=== PATIENT | male | born 1985 | race Caucasian/White ===

== ENCOUNTER 2017-06-19 09:10 | Inpatient (IN) | payer MEDICAID ==
[~2017-06-19] VITALS: Ht 180.3 cm; Wt 96.3 kg
[~2017-06-19 09:10] MED LIST: BENZ1TAB10 PO; BUSP10TA23 PO; DIPH50 PO; DIVA500T35 PO; HALO5 PO; LITH300C3 PO; TRAZ-147 PO
[2017-06-19 09:56] LABS: BASOPHILS # (AUTO) 0.03 K/uL (0.00-0.20); BASOPHILS % (AUTO) 0.2 % (0.0-2.0); EOSINOPHILS # (AUTO) 0.08 K/uL (0.00-0.70); EOSINOPHILS % (AUTO) 0.62 % (1.0-6.0); HEMATOCRIT 46.3 % (41-53); HEMOGLOBIN 15.4 g/dL (13.5-17.5); LYMPHOCYTES # (AUTO) 1.5 K/uL (1.0-4.8); MEAN CORPUSCULAR HEMOGLOBIN 28.9 pg (26.0-34.0); MEAN CORPUSCULAR HGB CONC 33.2 G/dL (31.0-37.0); MEAN CORPUSCULAR VOLUME 87 fL (80-100); MONOCYTES # (AUTO) 0.9 K/uL (0.1-1.0); NEUTROPHILS # (AUTO) 10.3 K/uL (1.8-7.7); NEUTROPHILS % (AUTO) 80.2 % (40.0-70.0); PLATELET COUNT (AUTO) 265 K/uL (150-450); RED BLOOD CELL COUNT(AUTO) 5.31 MIL/uL (4.50-5.90); RED CELL DISTRIBUTION WIDTH 12.9 % (11.5-14.5); WHITE BLOOD COUNT (AUTO) 12.8 K/uL (4.5-11.0)
[2017-06-19 10:03] LABS: ANION GAP 11 mmol/L (8-16); CALCIUM, TOTAL 9.7 mg/dL (8.8-10.5); CARBON DIOXIDE 29 mmol/L (22-29); CHLORIDE 103 mmol/L (98-107); GLOMERULAR FILTR. RATE CALC > 60 mL/min (>60); POTASSIUM 4.1 mmol/L (3.5-5.1); SODIUM SERUM 143 mmol/L (136-145); UREA NITROGEN, BLOOD 12 mg/dL (7-18)
[2017-06-19 10:05] LABS: LITHIUM < 0.20 mmol/L (0.60-1.20)
[2017-06-19 10:09] LABS: ALANINE AMINOTRANSFERASE 33 U/L (12-78); ALBUMIN 4.3 g/dL (3.4-5.0); ASPARTATE AMINOTRANSFERASE 22 U/L (15-37); BILIRUBIN,TOTAL 0.5 mg/dL (0.1-1.0); TOTAL PROTEIN, SERUM 7.7 g/dL (6.4-8.2)
[2017-06-19 10:15] LABS: VALPROIC ACID < 3 mcg/mL (50-100)
[2017-06-19] MEDS ORDERED: DiphenhydrAMINE HCL 50 MG CAPSULE PO ONE (10:15)
[2017-06-19] MEDS ORDERED: LORazepam 2 MG TABLET PO ONE (10:15)
[2017-06-19] MEDS ORDERED: HALOPERIDOL 5 MG TABLET PO ONE (10:15)
[2017-06-19] MEDS ORDERED: ZOLPIDEM TARTRATE 10 MG TABLET PO PRN (10:45)
[2017-06-19] MEDS ORDERED: HALO10 PO (10:49)
[2017-06-20 00:07] VITALS: BP 121/67
[2017-06-20 07:54] LABS: APPEARANCE,URINE CLEAR (CLEAR); GLUCOSE, URINE (UA) NEGATIVE (NEGATIVE); KETONES,URINE TRACE mg/dL (NEGATIVE); LEUKOCYTE ESTERASE ,URINE NEGATIVE (NEGATIVE); OCCULT BLOOD,URINE NEGATIVE (NEGATIVE); PROTEIN,URINE NEGATIVE (NEGATIVE)
[2017-06-20 07:58] LABS: CHOL/HDL RATIO 3.6 (4.2-7.3)
[2017-06-20 08:00] LABS: ADD UA MICROSCOPIC NO
[2017-06-20 08:40] VITALS: BP 125/76
[2017-06-20] MEDS ORDERED: LOPERAMIDE HCL 2 MG CAPSULE PO PRN (09:15)
[2017-06-20] MEDS ORDERED: ACETAMINOPHEN 325 MG TABLET PO PRN (09:15)
[2017-06-20] MEDS ORDERED: MAGNESIUM HYDROXIDE SUSPENSION 30 ML UDCUP PO PRN (09:15)
[2017-06-20] MEDS ORDERED: ONDANSETRON HCL 4 MG TABLET PO PRN (09:15)
[2017-06-20] MEDS ORDERED: ALBUTEROL SULFATE HFA 90 MCG/PUFF 8 GM INHALER IH PRN (09:15)
[2017-06-20] MEDS ORDERED: PETROLATUM,WHITE 71 GM JELLY TP PRN (09:15)
[2017-06-20] MEDS ORDERED: BACITRACIN 28.4 GM OINTMENT TP PRN (09:15)
[2017-06-20] MEDS ORDERED: CloNIDine HCL 0.1 MG TABLET PO PRN (09:15)
[2017-06-20] MEDS ORDERED: MAG HYDROX/AL HYDROX/SIMETH ES 30 ML SUSPENSION UDCUP PO PRN (09:15)
[2017-06-20] MEDS ORDERED: IBUPROFEN 600 MG TABLET PO PRN (09:15)
[2017-06-20] MEDS ORDERED: BENZOCAINE/MENTHOL LOZENGE [8 LOZENGES/PACKET] MM PRN (09:30)
[2017-06-20] MEDS: HALOPERIDOL 5 MG TABLET PO PRN (13:12)
[2017-06-20] MEDS: LORazepam 2 MG TABLET PO PRN (13:13)
[2017-06-20] MEDS: DIVALPROEX SODIUM 250 MG ER TABLET PO SCH (20:44)
[2017-06-20] MEDS: TraZODone HCL 100 MG TABLET PO SCH (20:44)
[2017-06-21 08:05] VITALS: BP 129/75
[2017-06-21] MEDS: HALOPERIDOL 5 MG TABLET PO PRN (09:08)
[2017-06-21] MEDS: DIVALPROEX SODIUM 250 MG ER TABLET PO SCH ×2 (09:08→16:30)
[2017-06-21] MEDS: LORazepam 2 MG TABLET PO PRN ×2 (09:08→16:30)
[2017-06-21 20:05] VITALS: BP 128/74
[2017-06-21] MEDS: TraZODone HCL 100 MG TABLET PO SCH (21:24)
[2017-06-22] MEDS: LORazepam 2 MG TABLET PO PRN (05:57)
[2017-06-22 06:07] VITALS: BP 126/73
[2017-06-22 06:52] LABS: BASOPHILS % (AUTO) 0.3 % (0.0-2.0); EOSINOPHILS % (AUTO) 3.1 % (1.0-6.0); HEMATOCRIT 44.2 % (41-53); HEMOGLOBIN 15.2 g/dL (13.5-17.5); LYMPHOCYTES # (AUTO) 2.2 K/uL (1.0-4.8); LYMPHOCYTES % (AUTO) 25.5 % (22.0-44.0); MEAN CORPUSCULAR HEMOGLOBIN 29.5 pg (26.0-34.0); MEAN CORPUSCULAR HGB CONC 34.5 G/dL (31.0-37.0); MEAN CORPUSCULAR VOLUME 86 fL (80-100); MONOCYTES # (AUTO) 1.1 K/uL (0.1-1.0); NEUTROPHILS # (AUTO) 4.9 K/uL (1.8-7.7); NEUTROPHILS % (AUTO) 58.1 % (40.0-70.0); PLATELET COUNT (AUTO) 281 K/uL (150-450); RED BLOOD CELL COUNT(AUTO) 5.16 MIL/uL (4.50-5.90); RED CELL DISTRIBUTION WIDTH 13.2 % (11.5-14.5); WHITE BLOOD COUNT (AUTO) 8.5 K/uL (4.5-11.0)
[2017-06-22 07:13] LABS: ALANINE AMINOTRANSFERASE 40 U/L (12-78); ALBUMIN 3.7 g/dL (3.4-5.0); ANION GAP 7 mmol/L (8-16); ASPARTATE AMINOTRANSFERASE 17 U/L (15-37); BILIRUBIN,TOTAL 0.2 mg/dL (0.1-1.0); CALCIUM, TOTAL 9.5 mg/dL (8.8-10.5); CARBON DIOXIDE 29 mmol/L (22-29); CHLORIDE 103 mmol/L (98-107); CREATININE 0.85 mg/dL (0.60-1.30); GLOMERULAR FILTR. RATE CALC > 60 mL/min (>60); POTASSIUM 4.2 mmol/L (3.5-5.1); SODIUM SERUM 139 mmol/L (136-145); TOTAL PROTEIN, SERUM 6.7 g/dL (6.4-8.2); UREA NITROGEN, BLOOD 7 mg/dL (7-18); VALPROIC ACID 47 mcg/mL (50-100)
[2017-06-22 08:00] VITALS: BP 131/72
[2017-06-22] MEDS: DIVALPROEX SODIUM 250 MG ER TABLET PO SCH (08:03)
[2017-06-22] MEDS: HALOPERIDOL 5 MG TABLET PO PRN (08:04)
[2017-06-22 08:30] VITALS: BP 131/72
[2017-06-22] MEDS ORDERED: DIVA250T45 PO (08:39)
== END 2017-06-22 08:58 | disposition home or self-care (01) | DRG 750 ==
LOC: EMS 09:15 → 3EC 23:00 → EMS 23:41
PROVIDERS: ADMIT Psychiatry & Neurology Child & Adolescent Psychiatry; ATTEND Psychiatry & Neurology Child & Adolescent Psychiatry
DX: F25.0 Schizoaffective disorder, bipolar type (principal); F15.20 Other stimulant dependence, uncomplicated; D72.829 Elevated white blood cell count, unspecified; F32.9 Major depressive disorder, single episode, unspecified; F17.210 Nicotine dependence, cigarettes, uncomplicated; F41.9 Anxiety disorder, unspecified; M54.5 Low back pain; G89.29 Other chronic pain; G47.00 Insomnia, unspecified; K58.9 Irritable bowel syndrome, unspecified; F12.90 Cannabis use, unspecified, uncomplicated; Z88.8 Allergy status to other drugs, medicaments and biological substances; Z63.9 Problem related to primary support group, unspecified; Z71.6 Tobacco abuse counseling; Z71.51 Drug abuse counseling and surveillance of drug abuser; Z79.899 Other long term (current) drug therapy
CPT/HCPCS: 80307; 99285; G0480

== ENCOUNTER 2018-03-13 05:27 | Emergency (ER) | payer MEDICAID ==
[~2018-03-13] VITALS: Ht 180.3 cm; Wt 100.0 kg
[~2018-03-13 05:27] MED LIST changes: -BENZ1TAB10 PO; -BUSP10TA23 PO; -DIPH50 PO; +DIVA250T45 PO; -DIVA500T35 PO; -HALO5 PO; -LITH300C3 PO
[2018-03-13] MEDS ORDERED: OLAN5TAB2 PO (05:58)
[2018-03-13 06:40] VITALS: BP 151/91
[2018-03-13] MEDS ORDERED: IBUPROFEN 600 MG TABLET PO ONE (06:45)
== END 2018-03-13 06:45 | disposition home or self-care (01) ==
LOC: EMS 05:27
DX: H66.91 Otitis media, unspecified, right ear (principal); F12.90 Cannabis use, unspecified, uncomplicated; F17.220 Nicotine dependence, chewing tobacco, uncomplicated
CPT/HCPCS: 99283

== ENCOUNTER 2018-09-06 21:33 | Emergency (ER) | payer MEDICAID ==
[~2018-09-06] VITALS: Ht 177.8 cm; Wt 95.0 kg
[~2018-09-06 21:33] MED LIST changes: +OLAN5TAB2 PO; -TRAZ-147 PO
[2018-09-06 21:39] VITALS: BP 155/89
[2018-09-06] MEDS ORDERED: AZIT250T9 PO (21:40)
== END 2018-09-06 22:00 | disposition left against medical advice (07) ==
LOC: EMS 21:34
DX: F41.9 Anxiety disorder, unspecified (principal); Z53.21 Procedure and treatment not carried out due to patient leaving prior to being seen by health care provider

== ENCOUNTER 2019-05-05 19:25 | Emergency (ER) | payer MEDICAID ==
[~2019-05-05] VITALS: Ht 177.8 cm; Wt 90.9 kg
[~2019-05-05 19:25] MED LIST changes: +TRAZ-220 PO
[2019-05-05 19:56] LABS: BASOPHILS % (AUTO) 0.5 % (0.0-2.0); EOSINOPHILS % (AUTO) 5.5 % (1.0-6.0); HEMATOCRIT 41.3 % (41-53); HEMOGLOBIN 13.5 g/dL (13.5-17.5); LYMPHOCYTES # (AUTO) 1.8 K/uL (1.0-4.8); LYMPHOCYTES % (AUTO) 19.1 % (22.0-44.0); MEAN CORPUSCULAR HEMOGLOBIN 28.9 pg (26.0-34.0); MEAN CORPUSCULAR HGB CONC 32.8 G/dL (31.0-37.0); MEAN CORPUSCULAR VOLUME 88 fL (80-100); MONOCYTES # (AUTO) 0.9 K/uL (0.1-1.0); MONOCYTES % (AUTO) 9.8 % (2.0-9.0); NEUTROPHILS # (AUTO) 6.1 K/uL (1.8-7.7); NEUTROPHILS % (AUTO) 65.1 % (40.0-70.0); PLATELET COUNT (AUTO) 284 K/uL (150-450); RED BLOOD CELL COUNT(AUTO) 4.68 MIL/uL (4.50-5.90); RED CELL DISTRIBUTION WIDTH 14.3 % (11.5-14.5)
[2019-05-05 20:09] LABS: ANION GAP 11 mmol/L (8-16); CALCIUM, TOTAL 8.8 mg/dL (8.8-10.5); CARBON DIOXIDE 28 mmol/L (22-29); CHLORIDE 103 mmol/L (98-107); CREATININE 1.14 mg/dL (0.60-1.30); GLOMERULAR FILTR. RATE CALC > 60 mL/min (>60); GLUCOSE,RANDOM 125 mg/dL (70-110); POTASSIUM 3.5 mmol/L (3.5-5.1); SODIUM SERUM 142 mmol/L (136-145); UREA NITROGEN, BLOOD 19 mg/dL (7-18)
[2019-05-05 20:18] LABS: ALANINE AMINOTRANSFERASE 98 U/L (12-78); ALBUMIN 3.4 g/dL (3.4-5.0); ALKALINE PHOSPHATASE 73 U/L (46-116); ASPARTATE AMINOTRANSFERASE 79 U/L (15-37); BILIRUBIN,TOTAL 0.3 mg/dL (0.1-1.0); TOTAL PROTEIN, SERUM 6.8 g/dL (6.4-8.2); VALPROIC ACID 9 mcg/mL (50-100)
[2019-05-05 23:16] LABS: AMPHET/METH SCREEN,URINE POSITIVE (NEGATIVE); BARBITURATE SCREEN, URINE NEGATIVE (NEGATIVE); BENZODIAZEPINES SCREEN,URINE NEGATIVE (NEGATIVE); CANNABINOID SCREEN,URINE NEGATIVE (NEGATIVE); COCAINE SCREEN,URINE NEGATIVE (NEGATIVE); METHADONE SCREEN, URINE NEGATIVE (NEGATIVE); OPIATE SCREEN,URINE NEGATIVE (NEGATIVE); PHENCYCLIDINE SCREEN,URINE NEGATIVE (NEGATIVE)
[2019-05-06 01:03] VITALS: BP 127/69
== END 2019-05-06 01:05 | disposition home or self-care (01) ==
LOC: EMS 19:27
DX: F20.9 Schizophrenia, unspecified (principal); F31.9 Bipolar disorder, unspecified; F41.9 Anxiety disorder, unspecified; F12.90 Cannabis use, unspecified, uncomplicated; F17.220 Nicotine dependence, chewing tobacco, uncomplicated; Z79.899 Other long term (current) drug therapy; Z88.8 Allergy status to other drugs, medicaments and biological substances
CPT/HCPCS: 36415; 80053; 80164; 80307; 82962; 85025; 99284; G0480

== ENCOUNTER 2019-09-14 12:38 | Inpatient (IN) | payer MEDICAID, OTHER ==
[~2019-09-14] VITALS: Ht 177.8 cm; Wt 92.0 kg
[2019-09-14 12:56] LABS: AMPHET/METH SCREEN,URINE POSITIVE (NEGATIVE); BARBITURATE SCREEN, URINE NEGATIVE (NEGATIVE); BENZODIAZEPINES SCREEN,URINE NEGATIVE (NEGATIVE); CANNABINOID SCREEN,URINE NEGATIVE (NEGATIVE); COCAINE SCREEN,URINE NEGATIVE (NEGATIVE); METHADONE SCREEN, URINE NEGATIVE (NEGATIVE); OPIATE SCREEN,URINE NEGATIVE (NEGATIVE)
[2019-09-14 12:57] LABS: PHENCYCLIDINE SCREEN,URINE NEGATIVE (NEGATIVE)
[2019-09-14 12:58] LABS: BASOPHILS % (AUTO) 0.6 % (0.0-2.0); EOSINOPHILS % (AUTO) 3.2 % (1.0-6.0); HEMATOCRIT 48.3 % (41-53); HEMOGLOBIN 16.2 g/dL (13.5-17.5); LYMPHOCYTES # (AUTO) 1.3 K/uL (1.0-4.8); LYMPHOCYTES % (AUTO) 14.4 % (22.0-44.0); MEAN CORPUSCULAR HGB CONC 33.5 G/dL (31.0-37.0); MEAN CORPUSCULAR VOLUME 87 fL (80-100); MONOCYTES # (AUTO) 0.7 K/uL (0.1-1.0); MONOCYTES % (AUTO) 7.6 % (2.0-9.0); NEUTROPHILS # (AUTO) 6.9 K/uL (1.8-7.7); NEUTROPHILS % (AUTO) 74.2 % (40.0-70.0); PLATELET COUNT (AUTO) 355 K/uL (150-450); RED BLOOD CELL COUNT(AUTO) 5.58 MIL/uL (4.50-5.90); RED CELL DISTRIBUTION WIDTH 14.1 % (11.5-14.5)
[2019-09-14] MEDS ORDERED: ONDANSETRON HCL 4 MG/2 ML VIAL IVP PRN (13:00)
[2019-09-14] MEDS ORDERED: MAGNESIUM HYDROXIDE SUSPENSION 30 ML UDCUP PO PRN (13:00)
[2019-09-14 13:31] LABS: ANION GAP 7 mmol/L (8-16); CALCIUM, TOTAL 9.3 mg/dL (8.8-10.5); CARBON DIOXIDE 29 mmol/L (22-29); CHLORIDE 99 mmol/L (98-107); CREATININE 0.95 mg/dL (0.60-1.30); GLOMERULAR FILTR. RATE CALC > 60 mL/min (>60); GLUCOSE,RANDOM 84 mg/dL (70-110); POTASSIUM 4.6 mmol/L (3.5-5.1); SODIUM SERUM 135 mmol/L (136-145); UREA NITROGEN, BLOOD 18 mg/dL (7-18)
[2019-09-14 13:39] LABS: ALANINE AMINOTRANSFERASE 40 U/L (12-78); ALBUMIN 3.8 g/dL (3.4-5.0); ALKALINE PHOSPHATASE 74 U/L (46-116); ASPARTATE AMINOTRANSFERASE 29 U/L (15-37); BILIRUBIN,TOTAL 0.5 mg/dL (0.1-1.0); TOTAL PROTEIN, SERUM 7.6 g/dL (6.4-8.2)
[2019-09-14] MEDS: ACETAMINOPHEN 325 MG TABLET PO PRN (14:25)
[2019-09-14 14:36] VITALS: BP 125/73
[2019-09-14] MEDS ORDERED: SODIUM CHLORIDE 0.9% 1,000 ML IV ONE (14:45)
[2019-09-14] MEDS ORDERED: INFLUENZA VIRUS VACCINE QVS 2019-20 (3YR+)/PF 60 MCG/0.5 ML SYRINGE IM ONE (18:00)
[2019-09-14 20:18] VITALS: BP 133/76
[2019-09-14 23:12] VITALS: BP 116/62
[2019-09-15 05:25] VITALS: BP 120/63
[2019-09-15 07:50] VITALS: BP 130/86
[2019-09-15] MEDS: FAMOTIDINE 20 MG TABLET PO SCH (09:23)
[2019-09-15] MEDS: MULTIVITAMINS WITH MINERALS, THERAPEUTIC TABLET PO SCH (09:23)
[2019-09-15 11:00] VITALS: BP 116/91
[2019-09-15] MEDS: HydrOXYzine PAMOATE 50 MG CAPSULE PO PRN ×2 (12:59→21:32)
[2019-09-15 15:07] VITALS: BP 130/71
[2019-09-15 20:00] VITALS: BP 119/83
[2019-09-15] MEDS: ACETAMINOPHEN 325 MG TABLET PO PRN (21:32)
[2019-09-16 05:27] VITALS: BP 119/75
[2019-09-16 07:16] VITALS: BP 126/77
[2019-09-16] MEDS ORDERED: SERTRALINE HCL 50 MG TABLET PO SCH (09:00)
[2019-09-16] MEDS ORDERED: OLANZapine 5 MG TABLET PO SCH (09:00)
[2019-09-16] MEDS: MULTIVITAMINS WITH MINERALS, THERAPEUTIC TABLET PO SCH (09:09)
[2019-09-16] MEDS: FAMOTIDINE 20 MG TABLET PO SCH (09:09)
[2019-09-16 11:30] VITALS: BP 125/86
== END 2019-09-16 13:55 | DRG 897 ==
LOC: EMS 12:39 → 6S 13:15
PROVIDERS: ADMIT Internal Medicine; ATTEND Internal Medicine
DX: F11.23 Opioid dependence with withdrawal (principal); R45.851 Suicidal ideations; F20.0 Paranoid schizophrenia; F41.9 Anxiety disorder, unspecified; F31.9 Bipolar disorder, unspecified; F15.10 Other stimulant abuse, uncomplicated; G89.29 Other chronic pain; M54.9 Dorsalgia, unspecified; Z23 Encounter for immunization
CPT/HCPCS: 90686; 93005; G0480; J7030

== ENCOUNTER 2019-09-21 21:59 | Inpatient (IN) | payer OTHER ==
[~2019-09-21] VITALS: Ht 175.3 cm; Wt 98.4 kg
[2019-09-21 22:25] LABS: BASOPHILS % (AUTO) 0.5 % (0.0-2.0); EOSINOPHILS % (AUTO) 3.4 % (1.0-6.0); HEMATOCRIT 41.6 % (41-53); HEMOGLOBIN 13.8 g/dL (13.5-17.5); LYMPHOCYTES # (AUTO) 2.3 K/uL (1.0-4.8); LYMPHOCYTES % (AUTO) 31.1 % (22.0-44.0); MEAN CORPUSCULAR HEMOGLOBIN 28.9 pg (26.0-34.0); MEAN CORPUSCULAR HGB CONC 33.2 G/dL (31.0-37.0); MEAN CORPUSCULAR VOLUME 87 fL (80-100); MONOCYTES # (AUTO) 0.7 K/uL (0.1-1.0); MONOCYTES % (AUTO) 9.6 % (2.0-9.0); NEUTROPHILS # (AUTO) 4.1 K/uL (1.8-7.7); NEUTROPHILS % (AUTO) 55.4 % (40.0-70.0); PLATELET COUNT (AUTO) 275 K/uL (150-450); RED BLOOD CELL COUNT(AUTO) 4.79 MIL/uL (4.50-5.90); RED CELL DISTRIBUTION WIDTH 13.8 % (11.5-14.5)
[2019-09-21 22:41] LABS: ANION GAP 6 mmol/L (8-16); CALCIUM, TOTAL 8.4 mg/dL (8.8-10.5); CARBON DIOXIDE 30 mmol/L (22-29); CHLORIDE 104 mmol/L (98-107); CREATININE 0.99 mg/dL (0.60-1.30); GLOMERULAR FILTR. RATE CALC > 60 mL/min (>60); GLUCOSE,RANDOM 92 mg/dL (70-110); POTASSIUM 3.8 mmol/L (3.5-5.1); SODIUM SERUM 140 mmol/L (136-145); UREA NITROGEN, BLOOD 10 mg/dL (7-18)
[2019-09-21 22:46] LABS: ALANINE AMINOTRANSFERASE 46 U/L (12-78); ALBUMIN 3.4 g/dL (3.4-5.0); ALKALINE PHOSPHATASE 67 U/L (46-116); ASPARTATE AMINOTRANSFERASE 23 U/L (15-37); BILIRUBIN,TOTAL 0.2 mg/dL (0.1-1.0); TOTAL PROTEIN, SERUM 6.5 g/dL (6.4-8.2)
[2019-09-21] MEDS ORDERED: ONDANSETRON HCL 4 MG/2 ML VIAL IVP PRN (23:30)
[2019-09-22 06:48] LABS: APPEARANCE,URINE CLEAR (CLEAR); BILIRUBIN,URINE NEGATIVE (NEGATIVE); GLUCOSE, URINE (UA) NEGATIVE (NEGATIVE); KETONES,URINE NEGATIVE (NEGATIVE); LEUKOCYTE ESTERASE ,URINE NEGATIVE (NEGATIVE); NITRATE,URINE NEGATIVE (NEGATIVE); OCCULT BLOOD,URINE NEGATIVE (NEGATIVE); PROTEIN,URINE NEGATIVE (NEGATIVE); UROBILINOGEN,URINE 0.2 mg/dL (<=1.0)
[2019-09-22 06:54] LABS: AMPHET/METH SCREEN,URINE NEGATIVE (NEGATIVE); BARBITURATE SCREEN, URINE NEGATIVE (NEGATIVE); BENZODIAZEPINES SCREEN,URINE NEGATIVE (NEGATIVE); CANNABINOID SCREEN,URINE NEGATIVE (NEGATIVE); COCAINE SCREEN,URINE NEGATIVE (NEGATIVE); METHADONE SCREEN, URINE NEGATIVE (NEGATIVE); OPIATE SCREEN,URINE NEGATIVE (NEGATIVE)
[2019-09-22 07:02] LABS: PHENCYCLIDINE SCREEN,URINE NEGATIVE (NEGATIVE)
[2019-09-22 08:23] VITALS: BP 117/80
[2019-09-22] MEDS: DOCUSATE SODIUM 100 MG CAPSULE PO SCH ×2 (09:00→21:00)
[2019-09-22 11:48] VITALS: BP 118/71
[2019-09-22 15:41] VITALS: BP 105/65
[2019-09-22 19:19] VITALS: BP 129/75
[2019-09-22] MEDS ORDERED: DiphenhydrAMINE HCL 25 MG CAPSULE PO ONE (22:00)
[2019-09-23 00:25] VITALS: BP 123/70
[2019-09-23 07:30] VITALS: BP 120/75
[2019-09-23] MEDS: DOCUSATE SODIUM 100 MG CAPSULE PO SCH ×2 (09:00→20:44)
[2019-09-23 11:13] VITALS: BP 128/67
[2019-09-23] MEDS: DIVALPROEX SODIUM 500 MG DR TABLET PO SCH ×2 (13:04→20:39)
[2019-09-23] MEDS: QUEtiapine FUMARATE 25 MG TABLET PO SCH (13:05)
[2019-09-23 15:12] VITALS: BP 124/72
[2019-09-23 20:14] VITALS: BP 106/60
[2019-09-23] MEDS: QUEtiapine FUMARATE 100 MG TABLET PO SCH (20:39)
[2019-09-23 23:27] VITALS: BP 116/66
[2019-09-24 05:42] VITALS: BP 118/12
[2019-09-24 07:20] VITALS: BP 116/69
[2019-09-24] MEDS: DIVALPROEX SODIUM 500 MG DR TABLET PO SCH ×2 (07:58→21:38)
[2019-09-24] MEDS: DOCUSATE SODIUM 100 MG CAPSULE PO SCH ×3 (07:58→21:38)
[2019-09-24] MEDS: QUEtiapine FUMARATE 25 MG TABLET PO SCH (08:00)
[2019-09-24 11:08] VITALS: BP 130/63
[2019-09-24] MEDS: VENLAFAXINE HCL 75 MG ER CAPSULE PO SCH (14:17)
[2019-09-24 15:05] VITALS: BP 124/74
[2019-09-24 19:22] VITALS: BP 126/74
[2019-09-24] MEDS: QUEtiapine FUMARATE 100 MG TABLET PO SCH (21:39)
[2019-09-24 23:27] VITALS: BP 123/61
[2019-09-25 05:15] VITALS: BP 107/62
[2019-09-25 07:45] VITALS: BP 116/71
[2019-09-25] MEDS: DOCUSATE SODIUM 100 MG CAPSULE PO SCH ×2 (08:10→20:13)
[2019-09-25] MEDS: DIVALPROEX SODIUM 500 MG DR TABLET PO SCH ×2 (08:10→20:12)
[2019-09-25] MEDS: QUEtiapine FUMARATE 25 MG TABLET PO SCH (08:11)
[2019-09-25] MEDS: VENLAFAXINE HCL 75 MG ER CAPSULE PO SCH ×2 (08:11→10:26)
[2019-09-25 11:36] VITALS: BP 125/75
[2019-09-25 15:15] VITALS: BP 113/60
[2019-09-25] MEDS ORDERED: ONDANSETRON HCL 4 MG/2 ML VIAL PO PRN (17:30)
[2019-09-25 19:21] VITALS: BP 129/75
[2019-09-25] MEDS: QUEtiapine FUMARATE 100 MG TABLET PO SCH (20:12)
[2019-09-26 04:04] VITALS: BP 107/60
[2019-09-26 07:35] VITALS: BP 108/61
[2019-09-26] MEDS: VENLAFAXINE HCL 75 MG ER CAPSULE PO SCH (08:15)
[2019-09-26] MEDS: MULTIVITAMINS WITH MINERALS, THERAPEUTIC TABLET PO SCH (08:15)
[2019-09-26] MEDS: DIVALPROEX SODIUM 500 MG DR TABLET PO SCH ×2 (08:15→20:03)
[2019-09-26] MEDS: QUEtiapine FUMARATE 25 MG TABLET PO SCH (08:15)
[2019-09-26] MEDS: DOCUSATE SODIUM 100 MG CAPSULE PO SCH ×2 (08:16→20:04)
[2019-09-26 11:16] VITALS: BP 126/63
[2019-09-26 15:09] VITALS: BP 113/64
[2019-09-26 19:21] VITALS: BP 131/69
[2019-09-26] MEDS: QUEtiapine FUMARATE 100 MG TABLET PO SCH (20:04)
[2019-09-26 23:49] VITALS: BP 124/67
[2019-09-27 05:07] VITALS: BP 113/69
[2019-09-27 08:00] VITALS: BP 117/64
[2019-09-27] MEDS: QUEtiapine FUMARATE 25 MG TABLET PO SCH (08:49)
[2019-09-27] MEDS: VENLAFAXINE HCL 75 MG ER CAPSULE PO SCH (08:49)
[2019-09-27] MEDS: MULTIVITAMINS WITH MINERALS, THERAPEUTIC TABLET PO SCH (08:49)
[2019-09-27] MEDS: DIVALPROEX SODIUM 500 MG DR TABLET PO SCH ×2 (08:49→19:49)
[2019-09-27] MEDS: DOCUSATE SODIUM 100 MG CAPSULE PO SCH ×3 (08:54→19:50)
[2019-09-27 11:51] VITALS: BP 121/64
[2019-09-27 15:23] VITALS: BP 120/69
[2019-09-27 19:34] VITALS: BP 132/75
[2019-09-27] MEDS: QUEtiapine FUMARATE 300 MG TABLET PO SCH (19:50)
[2019-09-28 06:03] VITALS: BP 114/75
[2019-09-28 07:41] VITALS: BP 116/67
[2019-09-28] MEDS: QUEtiapine FUMARATE 100 MG TABLET PO SCH (08:15)
[2019-09-28] MEDS: VENLAFAXINE HCL 75 MG ER CAPSULE PO SCH (08:17)
[2019-09-28] MEDS: DIVALPROEX SODIUM 500 MG DR TABLET PO SCH ×2 (08:17→22:42)
[2019-09-28] MEDS: MULTIVITAMINS WITH MINERALS, THERAPEUTIC TABLET PO SCH (08:18)
[2019-09-28] MEDS ORDERED: HALOPERIDOL LACTATE 5 MG/ML VIAL IM ONE (10:00)
[2019-09-28] MEDS ORDERED: DiphenhydrAMINE HCL 50 MG/ML VIAL IM ONE (10:00)
[2019-09-28] MEDS ORDERED: LORazepam 2 MG/ML VIAL IM ONE (10:00)
[2019-09-28 11:00] VITALS: BP 122/71
[2019-09-28 16:23] VITALS: BP 114/66
[2019-09-28] MEDS: DOCUSATE SODIUM 100 MG CAPSULE PO SCH (21:00)
[2019-09-28 21:04] VITALS: BP 127/77
[2019-09-28] MEDS: QUEtiapine FUMARATE 300 MG TABLET PO SCH (22:42)
[2019-09-28 23:05] VITALS: BP 130/74
[2019-09-29 07:17] VITALS: BP 119/64
[2019-09-29] MEDS: VENLAFAXINE HCL 75 MG ER CAPSULE PO SCH ×2 (09:29→21:06)
[2019-09-29] MEDS: DIVALPROEX SODIUM 500 MG DR TABLET PO SCH ×2 (09:33→21:07)
[2019-09-29] MEDS: MULTIVITAMINS WITH MINERALS, THERAPEUTIC TABLET PO SCH (09:33)
[2019-09-29] MEDS: QUEtiapine FUMARATE 100 MG TABLET PO SCH ×2 (09:33→21:05)
[2019-09-29] MEDS: DOCUSATE SODIUM 100 MG CAPSULE PO SCH ×2 (09:33→21:08)
[2019-09-29 11:08] VITALS: BP 125/63
[2019-09-29 15:24] VITALS: BP 128/71
[2019-09-29 19:34] VITALS: BP 123/66
[2019-09-29] MEDS: QUEtiapine FUMARATE 300 MG TABLET PO SCH (21:05)
[2019-09-29 23:22] VITALS: BP 115/62
[2019-09-30 05:46] VITALS: BP 121/64
[2019-09-30 07:36] VITALS: BP 109/60
[2019-09-30] MEDS: QUEtiapine FUMARATE 100 MG TABLET PO SCH ×2 (08:12→20:09)
[2019-09-30] MEDS: VENLAFAXINE HCL 75 MG ER CAPSULE PO SCH ×2 (08:12→20:09)
[2019-09-30] MEDS: MULTIVITAMINS WITH MINERALS, THERAPEUTIC TABLET PO SCH (08:12)
[2019-09-30] MEDS: DIVALPROEX SODIUM 500 MG DR TABLET PO SCH ×2 (08:12→20:09)
[2019-09-30] MEDS: DOCUSATE SODIUM 100 MG CAPSULE PO SCH ×2 (08:13→20:09)
[2019-09-30 11:15] VITALS: BP 135/85
[2019-09-30 15:21] VITALS: BP 128/77
[2019-09-30 19:34] VITALS: BP 126/69
[2019-09-30] MEDS: QUEtiapine FUMARATE 300 MG TABLET PO SCH (20:09)
[2019-10-01 07:20] VITALS: BP 114/64
[2019-10-01] MEDS: VENLAFAXINE HCL 75 MG ER CAPSULE PO SCH ×2 (08:10→20:17)
[2019-10-01] MEDS: DOCUSATE SODIUM 100 MG CAPSULE PO SCH ×2 (08:10→20:17)
[2019-10-01] MEDS: QUEtiapine FUMARATE 100 MG TABLET PO SCH ×2 (08:10→20:17)
[2019-10-01] MEDS: MULTIVITAMINS WITH MINERALS, THERAPEUTIC TABLET PO SCH (08:10)
[2019-10-01] MEDS: DIVALPROEX SODIUM 500 MG DR TABLET PO SCH ×2 (08:10→20:17)
[2019-10-01] MEDS: RisperiDONE 2 MG TABLET PO SCH (10:21)
[2019-10-01 11:38] VITALS: BP 119/63
[2019-10-01 15:40] VITALS: BP 115/60
[2019-10-01 19:45] VITALS: BP 116/66
[2019-10-01] MEDS: QUEtiapine FUMARATE 300 MG TABLET PO SCH (20:17)
[2019-10-02 05:19] VITALS: BP 104/61
[2019-10-02 07:44] VITALS: BP 111/58
[2019-10-02] MEDS: VENLAFAXINE HCL 75 MG ER CAPSULE PO SCH ×2 (08:05→20:48)
[2019-10-02] MEDS: QUEtiapine FUMARATE 100 MG TABLET PO SCH ×2 (08:05→20:48)
[2019-10-02] MEDS: RisperiDONE 2 MG TABLET PO SCH (08:06)
[2019-10-02] MEDS: MULTIVITAMINS WITH MINERALS, THERAPEUTIC TABLET PO SCH (08:06)
[2019-10-02] MEDS: DOCUSATE SODIUM 100 MG CAPSULE PO SCH ×2 (08:06→21:00)
[2019-10-02] MEDS: DIVALPROEX SODIUM 500 MG DR TABLET PO SCH ×2 (08:07→20:48)
[2019-10-02 11:39] VITALS: BP 121/57
[2019-10-02 15:53] VITALS: BP 122/65
[2019-10-02 19:35] VITALS: BP 123/65
[2019-10-02] MEDS: QUEtiapine FUMARATE 300 MG TABLET PO SCH (20:48)
[2019-10-03] MEDS: MULTIVITAMINS WITH MINERALS, THERAPEUTIC TABLET PO SCH (08:15)
[2019-10-03] MEDS: DOCUSATE SODIUM 100 MG CAPSULE PO SCH ×2 (08:15→20:49)
[2019-10-03] MEDS: VENLAFAXINE HCL 75 MG ER CAPSULE PO SCH ×2 (08:15→20:46)
[2019-10-03] MEDS: QUEtiapine FUMARATE 100 MG TABLET PO SCH ×2 (08:15→20:47)
[2019-10-03] MEDS: RisperiDONE 2 MG TABLET PO SCH (08:15)
[2019-10-03] MEDS: DIVALPROEX SODIUM 500 MG DR TABLET PO SCH ×2 (08:15→20:46)
[2019-10-03 08:30] VITALS: BP 115/60
[2019-10-03 11:56] VITALS: BP 114/76
[2019-10-03 16:06] VITALS: BP 123/69
[2019-10-03 20:19] VITALS: BP 111/74
[2019-10-03] MEDS: QUEtiapine FUMARATE 300 MG TABLET PO SCH (20:46)
[2019-10-04 05:32] VITALS: BP 118/70
[2019-10-04 08:06] VITALS: BP 125/65
[2019-10-04] MEDS: MULTIVITAMINS WITH MINERALS, THERAPEUTIC TABLET PO SCH (08:40)
[2019-10-04] MEDS: QUEtiapine FUMARATE 100 MG TABLET PO SCH (08:40)
[2019-10-04] MEDS: DIVALPROEX SODIUM 500 MG DR TABLET PO SCH ×2 (08:40→20:09)
[2019-10-04] MEDS: VENLAFAXINE HCL 75 MG ER CAPSULE PO SCH ×2 (08:40→20:09)
[2019-10-04] MEDS: RisperiDONE 2 MG TABLET PO SCH (08:40)
[2019-10-04] MEDS: DOCUSATE SODIUM 100 MG CAPSULE PO SCH ×2 (08:42→21:00)
[2019-10-04 12:03] VITALS: BP 126/68
[2019-10-04 15:34] VITALS: BP 111/61
[2019-10-04 19:50] VITALS: BP 115/71
[2019-10-04] MEDS: QUEtiapine FUMARATE 300 MG TABLET PO SCH (20:09)
[2019-10-05 00:15] VITALS: BP 115/58
[2019-10-05 04:05] VITALS: BP 116/56
[2019-10-05] MEDS: DOCUSATE SODIUM 100 MG CAPSULE PO SCH ×2 (08:26→20:18)
[2019-10-05] MEDS: MULTIVITAMINS WITH MINERALS, THERAPEUTIC TABLET PO SCH (08:33)
[2019-10-05] MEDS: RisperiDONE 2 MG TABLET PO SCH ×2 (08:33→20:19)
[2019-10-05] MEDS: QUEtiapine FUMARATE 100 MG TABLET PO SCH ×2 (08:33→15:59)
[2019-10-05] MEDS: DIVALPROEX SODIUM 500 MG DR TABLET PO SCH ×2 (08:33→20:19)
[2019-10-05] MEDS: VENLAFAXINE HCL 75 MG ER CAPSULE PO SCH ×2 (08:33→20:18)
[2019-10-05 08:40] VITALS: BP 121/63
[2019-10-05 11:15] VITALS: BP 121/62
[2019-10-05 15:19] VITALS: BP 116/77
[2019-10-05 20:05] VITALS: BP 121/69
[2019-10-05] MEDS: QUEtiapine FUMARATE 300 MG TABLET PO SCH (20:19)
[2019-10-06 04:16] VITALS: BP 118/59
[2019-10-06 07:30] VITALS: BP 114/66
[2019-10-06] MEDS: DOCUSATE SODIUM 100 MG CAPSULE PO SCH ×2 (09:00→20:02)
[2019-10-06] MEDS: QUEtiapine FUMARATE 100 MG TABLET PO SCH ×2 (10:57→16:30)
[2019-10-06] MEDS: VENLAFAXINE HCL 75 MG ER CAPSULE PO SCH ×2 (10:57→20:02)
[2019-10-06] MEDS: RisperiDONE 2 MG TABLET PO SCH ×2 (10:57→20:02)
[2019-10-06] MEDS: DIVALPROEX SODIUM 500 MG DR TABLET PO SCH ×2 (10:57→20:02)
[2019-10-06] MEDS: MULTIVITAMINS WITH MINERALS, THERAPEUTIC TABLET PO SCH (10:57)
[2019-10-06 11:00] VITALS: BP 115/63
[2019-10-06 15:00] VITALS: BP 124/67
[2019-10-06 19:45] VITALS: BP 123/65
[2019-10-06] MEDS: QUEtiapine FUMARATE 300 MG TABLET PO SCH (20:02)
[2019-10-07 04:15] VITALS: BP 126/77
[2019-10-07 07:48] VITALS: BP 118/74
[2019-10-07] MEDS: DIVALPROEX SODIUM 500 MG DR TABLET PO SCH ×2 (08:28→20:17)
[2019-10-07] MEDS: RisperiDONE 2 MG TABLET PO SCH ×2 (08:29→20:17)
[2019-10-07] MEDS: VENLAFAXINE HCL 75 MG ER CAPSULE PO SCH ×2 (08:29→20:17)
[2019-10-07] MEDS: DOCUSATE SODIUM 100 MG CAPSULE PO SCH ×2 (08:29→20:17)
[2019-10-07] MEDS: QUEtiapine FUMARATE 100 MG TABLET PO SCH ×2 (08:29→16:14)
[2019-10-07] MEDS: MULTIVITAMINS WITH MINERALS, THERAPEUTIC TABLET PO SCH (08:29)
[2019-10-07 13:08] VITALS: BP 126/69
[2019-10-07 16:12] VITALS: BP 118/83
[2019-10-07] MEDS: ACETAMINOPHEN 325 MG TABLET PO PRN (16:14)
[2019-10-07 19:22] VITALS: BP 119/78
[2019-10-07] MEDS: QUEtiapine FUMARATE 300 MG TABLET PO SCH (20:17)
[2019-10-08 00:17] VITALS: BP 116/73
[2019-10-08 03:20] VITALS: BP 110/63
[2019-10-08 07:52] VITALS: BP 129/69
[2019-10-08] MEDS: DOCUSATE SODIUM 100 MG CAPSULE PO SCH ×2 (08:25→21:00)
[2019-10-08] MEDS: VENLAFAXINE HCL 75 MG ER CAPSULE PO SCH ×2 (08:25→20:19)
[2019-10-08] MEDS: RisperiDONE 2 MG TABLET PO SCH ×2 (08:26→20:19)
[2019-10-08] MEDS: QUEtiapine FUMARATE 100 MG TABLET PO SCH ×2 (08:26→16:06)
[2019-10-08] MEDS: MULTIVITAMINS WITH MINERALS, THERAPEUTIC TABLET PO SCH (08:26)
[2019-10-08] MEDS: DIVALPROEX SODIUM 500 MG DR TABLET PO SCH ×2 (08:26→20:19)
[2019-10-08 11:50] VITALS: BP 117/71
[2019-10-08 16:35] VITALS: BP 125/80
[2019-10-08 20:13] VITALS: BP 122/78
[2019-10-08] MEDS: QUEtiapine FUMARATE 300 MG TABLET PO SCH (20:19)
[2019-10-09 00:15] VITALS: BP 142/71
[2019-10-09 04:17] VITALS: BP 122/85
[2019-10-09 07:52] VITALS: BP 111/89
[2019-10-09] MEDS: VENLAFAXINE HCL 75 MG ER CAPSULE PO SCH ×2 (08:12→20:02)
[2019-10-09] MEDS: RisperiDONE 2 MG TABLET PO SCH ×2 (08:12→20:02)
[2019-10-09] MEDS: DIVALPROEX SODIUM 500 MG DR TABLET PO SCH ×2 (08:12→20:02)
[2019-10-09] MEDS: MULTIVITAMINS WITH MINERALS, THERAPEUTIC TABLET PO SCH (08:12)
[2019-10-09] MEDS: DOCUSATE SODIUM 100 MG CAPSULE PO SCH ×2 (08:12→08:16)
[2019-10-09] MEDS: QUEtiapine FUMARATE 100 MG TABLET PO SCH ×2 (08:12→16:40)
[2019-10-09 11:31] VITALS: BP 124/69
[2019-10-09 15:20] VITALS: BP 123/78
[2019-10-09] MEDS: QUEtiapine FUMARATE 300 MG TABLET PO SCH (20:02)
[2019-10-10] VITALS (7 sets, daily range): BP systolic 115–153; BP diastolic 64–82
[2019-10-10] MEDS: QUEtiapine FUMARATE 100 MG TABLET PO SCH ×2 (08:10→16:29)
[2019-10-10] MEDS: VENLAFAXINE HCL 75 MG ER CAPSULE PO SCH ×2 (08:10→20:00)
[2019-10-10] MEDS: MULTIVITAMINS WITH MINERALS, THERAPEUTIC TABLET PO SCH (08:10)
[2019-10-10] MEDS: DIVALPROEX SODIUM 500 MG DR TABLET PO SCH ×2 (08:11→20:01)
[2019-10-10] MEDS: DOCUSATE SODIUM 100 MG CAPSULE PO SCH ×2 (08:11→20:01)
[2019-10-10] MEDS: RisperiDONE 2 MG TABLET PO SCH ×2 (08:11→20:01)
[2019-10-10] MEDS: QUEtiapine FUMARATE 300 MG TABLET PO SCH (20:01)
[2019-10-11 04:00] VITALS: BP 107/64
[2019-10-11 07:53] VITALS: BP 120/64
[2019-10-11] MEDS: RisperiDONE 2 MG TABLET PO SCH ×2 (08:15→20:08)
[2019-10-11] MEDS: QUEtiapine FUMARATE 100 MG TABLET PO SCH (08:15)
[2019-10-11] MEDS: VENLAFAXINE HCL 75 MG ER CAPSULE PO SCH ×2 (08:15→20:07)
[2019-10-11] MEDS: MULTIVITAMINS WITH MINERALS, THERAPEUTIC TABLET PO SCH (08:15)
[2019-10-11] MEDS: DIVALPROEX SODIUM 500 MG DR TABLET PO SCH ×2 (08:15→20:08)
[2019-10-11] MEDS: DOCUSATE SODIUM 100 MG CAPSULE PO SCH ×2 (08:16→20:08)
[2019-10-11 11:50] VITALS: BP 126/73
[2019-10-11] MEDS: QUEtiapine FUMARATE 200 MG TABLET PO SCH ×2 (15:31→20:08)
[2019-10-11 16:54] VITALS: BP 135/64
[2019-10-11 19:30] VITALS: BP 124/77
[2019-10-12 00:39] VITALS: BP 123/72
[2019-10-12 04:34] VITALS: BP 125/68
[2019-10-12 07:42] VITALS: BP 119/73
[2019-10-12] MEDS: DIVALPROEX SODIUM 500 MG DR TABLET PO SCH ×2 (09:33→20:04)
[2019-10-12] MEDS: VENLAFAXINE HCL 75 MG ER CAPSULE PO SCH ×2 (09:33→20:04)
[2019-10-12] MEDS: QUEtiapine FUMARATE 200 MG TABLET PO SCH ×3 (09:33→20:05)
[2019-10-12] MEDS: MULTIVITAMINS WITH MINERALS, THERAPEUTIC TABLET PO SCH (09:33)
[2019-10-12] MEDS: RisperiDONE 2 MG TABLET PO SCH ×2 (09:33→20:05)
[2019-10-12] MEDS: DOCUSATE SODIUM 100 MG CAPSULE PO SCH ×2 (09:33→20:05)
[2019-10-12 11:50] VITALS: BP 136/63
[2019-10-12 15:40] VITALS: BP 120/74
[2019-10-12 20:55] VITALS: BP 133/77
[2019-10-13] VITALS (7 sets, daily range): BP systolic 108–133; BP diastolic 53–78
[2019-10-13] MEDS: DOCUSATE SODIUM 100 MG CAPSULE PO SCH ×2 (09:27→20:31)
[2019-10-13] MEDS: QUEtiapine FUMARATE 200 MG TABLET PO SCH (09:27)
[2019-10-13] MEDS: MULTIVITAMINS WITH MINERALS, THERAPEUTIC TABLET PO SCH (09:27)
[2019-10-13] MEDS: VENLAFAXINE HCL 75 MG ER CAPSULE PO SCH ×2 (09:27→20:30)
[2019-10-13] MEDS: RisperiDONE 2 MG TABLET PO SCH (09:27)
[2019-10-13] MEDS: DIVALPROEX SODIUM 500 MG DR TABLET PO SCH ×2 (09:27→20:30)
[2019-10-13] MEDS: RisperiDONE 4 MG TABLET PO SCH (20:30)
[2019-10-13] MEDS: ACETAMINOPHEN 325 MG TABLET PO PRN (20:32)
[2019-10-14 05:25] VITALS: BP 121/64
[2019-10-14 07:56] VITALS: BP 117/70
[2019-10-14] MEDS: MULTIVITAMINS WITH MINERALS, THERAPEUTIC TABLET PO SCH (09:17)
[2019-10-14] MEDS: DIVALPROEX SODIUM 500 MG DR TABLET PO SCH ×2 (09:17→20:34)
[2019-10-14] MEDS: RisperiDONE 4 MG TABLET PO SCH ×2 (09:17→20:34)
[2019-10-14] MEDS: DOCUSATE SODIUM 100 MG CAPSULE PO SCH ×2 (09:17→20:35)
[2019-10-14] MEDS: VENLAFAXINE HCL 75 MG ER CAPSULE PO SCH ×2 (09:17→20:34)
[2019-10-14 11:20] VITALS: BP 122/60
[2019-10-14 15:51] VITALS: BP 119/65
[2019-10-14 20:16] VITALS: BP 132/77
[2019-10-14] MEDS: ACETAMINOPHEN 325 MG TABLET PO PRN (20:35)
[2019-10-15 07:59] VITALS: BP 123/71
[2019-10-15] MEDS: VENLAFAXINE HCL 75 MG ER CAPSULE PO SCH ×2 (08:26→20:56)
[2019-10-15] MEDS: DOCUSATE SODIUM 100 MG CAPSULE PO SCH ×2 (08:26→20:54)
[2019-10-15] MEDS: RisperiDONE 4 MG TABLET PO SCH ×2 (08:26→21:00)
[2019-10-15] MEDS: DIVALPROEX SODIUM 500 MG DR TABLET PO SCH ×2 (08:26→20:55)
[2019-10-15] MEDS: MULTIVITAMINS WITH MINERALS, THERAPEUTIC TABLET PO SCH (08:26)
[2019-10-15] MEDS ORDERED: RisperiDONE 4 MG TABLET PO ONE (11:15)
[2019-10-15 11:45] VITALS: BP 132/83
[2019-10-15] MEDS: BENZTROPINE MESYLATE 1 MG TABLET PO SCH ×2 (11:45→20:54)
[2019-10-15 15:46] VITALS: BP 140/73
[2019-10-15 19:43] VITALS: BP 132/85
[2019-10-15 23:41] VITALS: BP 130/71
[2019-10-16 05:39] VITALS: BP 106/68
[2019-10-16] MEDS: DIVALPROEX SODIUM 500 MG DR TABLET PO SCH ×2 (07:57→20:44)
[2019-10-16] MEDS: RisperiDONE 4 MG TABLET PO SCH ×2 (07:57→20:44)
[2019-10-16] MEDS: VENLAFAXINE HCL 75 MG ER CAPSULE PO SCH ×2 (07:57→21:00)
[2019-10-16] MEDS: BENZTROPINE MESYLATE 1 MG TABLET PO SCH (07:58)
[2019-10-16] MEDS: MULTIVITAMINS WITH MINERALS, THERAPEUTIC TABLET PO SCH (07:58)
[2019-10-16] MEDS: DOCUSATE SODIUM 100 MG CAPSULE PO SCH ×2 (07:58→21:00)
[2019-10-16 11:47] VITALS: BP 117/62
[2019-10-16 15:50] VITALS: BP 119/73
[2019-10-16 20:21] VITALS: BP 130/71
[2019-10-16] MEDS: BENZTROPINE MESYLATE 2 MG TABLET PO SCH (20:45)
[2019-10-16 23:32] VITALS: BP 119/72
[2019-10-17 05:20] VITALS: BP 124/74
[2019-10-17 06:11] VITALS: BP 119/67
[2019-10-17 07:50] VITALS: BP 116/63
[2019-10-17] MEDS: MULTIVITAMINS WITH MINERALS, THERAPEUTIC TABLET PO SCH (07:51)
[2019-10-17] MEDS: VENLAFAXINE HCL 75 MG ER CAPSULE PO SCH ×3 (07:51→21:00)
[2019-10-17] MEDS: DIVALPROEX SODIUM 500 MG DR TABLET PO SCH ×2 (07:51→20:37)
[2019-10-17] MEDS: BENZTROPINE MESYLATE 2 MG TABLET PO SCH ×2 (07:52→20:38)
[2019-10-17] MEDS: RisperiDONE 4 MG TABLET PO SCH ×2 (07:52→20:38)
[2019-10-17] MEDS: DOCUSATE SODIUM 100 MG CAPSULE PO SCH ×2 (07:53→21:00)
[2019-10-17 11:46] VITALS: BP 125/67
[2019-10-17 16:30] VITALS: BP 119/70
[2019-10-17 20:01] VITALS: BP 137/76
[2019-10-18 00:14] VITALS: BP 124/65
[2019-10-18 04:51] VITALS: BP 124/72
[2019-10-18 08:06] VITALS: BP 140/65
[2019-10-18] MEDS: VENLAFAXINE HCL 75 MG ER CAPSULE PO SCH ×3 (09:00→21:00)
[2019-10-18] MEDS: DOCUSATE SODIUM 100 MG CAPSULE PO SCH ×3 (09:00→21:00)
[2019-10-18] MEDS: BENZTROPINE MESYLATE 2 MG TABLET PO SCH ×2 (09:45→20:50)
[2019-10-18] MEDS: DIVALPROEX SODIUM 500 MG DR TABLET PO SCH ×2 (09:45→20:51)
[2019-10-18] MEDS: MULTIVITAMINS WITH MINERALS, THERAPEUTIC TABLET PO SCH (09:45)
[2019-10-18] MEDS: RisperiDONE 4 MG TABLET PO SCH ×2 (09:46→20:51)
[2019-10-18 11:29] VITALS: BP 119/70
[2019-10-18 15:57] VITALS: BP 137/86
[2019-10-18] MEDS: ACETAMINOPHEN 325 MG TABLET PO PRN (20:52)
[2019-10-19 00:20] VITALS: BP 134/82
[2019-10-19 05:58] VITALS: BP 117/71
[2019-10-19] MEDS: BENZTROPINE MESYLATE 2 MG TABLET PO SCH (08:01)
[2019-10-19] MEDS: RisperiDONE 4 MG TABLET PO SCH (08:01)
[2019-10-19] MEDS: MULTIVITAMINS WITH MINERALS, THERAPEUTIC TABLET PO SCH (08:02)
[2019-10-19] MEDS: VENLAFAXINE HCL 75 MG ER CAPSULE PO SCH (08:02)
[2019-10-19] MEDS: DIVALPROEX SODIUM 500 MG DR TABLET PO SCH (08:02)
[2019-10-19 08:04] VITALS: BP 113/67
[2019-10-19] MEDS: DOCUSATE SODIUM 100 MG CAPSULE PO SCH (08:06)
[2019-10-19 11:24] VITALS: BP 137/90
[2019-10-19] MEDS ORDERED: RISP4 PO (12:35)
[2019-10-19] MEDS ORDERED: BENZ2TAB10 PO (12:35)
[2019-10-19] MEDS ORDERED: DIVA-78 PO (12:35)
[2019-10-19] MEDS ORDERED: VENLAFAXINE PO (12:37)
== END 2019-10-19 14:15 | disposition home or self-care (01) | DRG 918 ==
LOC: EMS 22:00 → 5N 09-22 05:48 → 6S 09-22 08:27
PROVIDERS: ADMIT Internal Medicine; ATTEND Internal Medicine
DX: T44.6X2A Poisoning by alpha-adrenoreceptor antagonists, intentional self-harm, initial encounter (principal); R45.851 Suicidal ideations; F17.210 Nicotine dependence, cigarettes, uncomplicated; F25.1 Schizoaffective disorder, depressive type; F31.9 Bipolar disorder, unspecified; Y92.89 Other specified places as the place of occurrence of the external cause; R45.87 Impulsiveness; F41.9 Anxiety disorder, unspecified; G89.29 Other chronic pain
CPT/HCPCS: G0480; J1200; J1630; J2060

== ENCOUNTER 2023-12-10 00:39 | Inpatient (IN) | payer MEDICAID ==
[~2023-12-10] VITALS: Ht 180.3 cm; Wt 98.9 kg
[~2023-12-10 00:39] MED LIST changes: +BENZ2TAB71 PO; +DIVA-112 PO; -DIVA250T45 PO; -OLAN5TAB2 PO; +RISP4TAB73 PO; -TRAZ-220 PO; +VENL-193 PO
[2023-12-10 03:48] VITALS: BP 116/72; PULSE 74; RESP 18; TEMP 97.3; O2SAT 97
[2023-12-10 08:21] VITALS: RESP 16
[2023-12-10 08:35] LABS: ALCOHOL, URINE DRUG SCREEN NEGATIVE (NEGATIVE); AMPHET/METH SCREEN,URINE NEGATIVE (NEGATIVE); BARBITURATE SCREEN, URINE NEGATIVE (NEGATIVE); BENZODIAZEPINES SCREEN,URINE NEGATIVE (NEGATIVE); CANNABINOID SCREEN,URINE NEGATIVE (NEGATIVE); COCAINE SCREEN,URINE NEGATIVE (NEGATIVE); METHADONE SCREEN, URINE NEGATIVE (NEGATIVE); OPIATE SCREEN,URINE NEGATIVE (NEGATIVE); PHENCYCLIDINE SCREEN,URINE NEGATIVE (NEGATIVE)
[2023-12-10] MEDS: VENLAFAXINE HCL 37.5 MG TABLET PO SCH (16:53)
[2023-12-10] MEDS: DIVALPROEX SODIUM 500 MG DR TABLET PO SCH (16:53)
[2023-12-10] MEDS: QUEtiapine FUMARATE 200 MG TABLET PO SCH (16:53)
[2023-12-10] MEDS ORDERED: VENLAFAXINE HCL 75 MG TABLET PO SCH (17:00)
[2023-12-10] MEDS ORDERED: RisperiDONE 3 MG TABLET PO SCH (17:00)
[2023-12-10 20:28] VITALS: BP 112/64; PULSE 80; RESP 18; TEMP 97.8; O2SAT 98
[2023-12-11] MEDS: LORazepam 2 MG TABLET PO PRN (08:18)
[2023-12-11] MEDS ORDERED: DOCUSATE SODIUM 100 MG CAPSULE PO PRN (17:00)
[2023-12-11] MEDS ORDERED: GuaiFENesin/D-METHORPHAN [SUGAR-FREE] 200-20MG/10 ML SYRUP UDCUP PO PRN (17:00)
[2023-12-11] MEDS ORDERED: CloNIDine HCL 0.1 MG TABLET PO PRN (17:00)
[2023-12-11] MEDS ORDERED: ALBUTEROL SULFATE HFA 90 MCG/PUFF 8 GM INHALER IH PRN (17:00)
[2023-12-11] MEDS ORDERED: MAGNESIUM HYDROXIDE SUSPENSION 30 ML UDCUP PO PRN (17:00)
[2023-12-11] MEDS ORDERED: IBUPROFEN 400 MG TABLET PO PRN (17:00)
[2023-12-11] MEDS ORDERED: PETROLATUM,WHITE 28 GM JELLY TP PRN (17:00)
[2023-12-11] MEDS ORDERED: LOPERAMIDE HCL 2 MG CAPSULE PO PRN (17:00)
[2023-12-11] MEDS ORDERED: NICOTINE 14 MG/24 HOUR PATCH TD PRN (17:00)
[2023-12-11] MEDS ORDERED: ONDANSETRON HCL 4 MG TABLET PO PRN (17:00)
[2023-12-11] MEDS ORDERED: ACETAMINOPHEN 325 MG TABLET PO PRN (17:00)
[2023-12-11] MEDS ORDERED: MAG HYDROX/ALUMINUM HYD/SIMETH ES 30 ML SUSPENSION UDCUP PO PRN (17:00)
[2023-12-11 18:12] VITALS: BP 103/60; PULSE 72; RESP 17; TEMP 98.9; O2SAT 98
[2023-12-11 21:07] VITALS: BP 105/64; PULSE 74; RESP 16; TEMP 98.4; O2SAT 98
[2023-12-12 08:45] VITALS: BP 139/87; PULSE 92; RESP 17; TEMP 97.7; O2SAT 98
[2023-12-12 09:07] LABS: HEMOGLOBIN A1C 5.4 % (3.8-5.6)
[2023-12-12 09:32] LABS: THYROID STIMULATING HORMONE 0.23 uIU/mL (0.36-3.74)
[2023-12-12] MEDS: INFLUENZA VIRUS VACCINE QVS 2023-24 (6MO+)/PF 60 MCG/0.5 ML SYRINGE IM. ONE (16:17)
[2023-12-12 21:46] VITALS: BP 128/75; PULSE 68; RESP 17; TEMP 96.9; O2SAT 95
[2023-12-13 08:16] VITALS: BP 135/77; PULSE 84; RESP 18; TEMP 97.8; O2SAT 97
[2023-12-13 08:50] LABS: APPEARANCE,URINE CLEAR (CLEAR); BILIRUBIN,URINE NEGATIVE (NEGATIVE); COLOR,URINE COLORLESS (YELLOW); GLUCOSE, URINE (UA) NEGATIVE (NEGATIVE); KETONES,URINE NEGATIVE (NEGATIVE); LEUKOCYTE ESTERASE ,URINE NEGATIVE (NEGATIVE); NITRATE,URINE NEGATIVE (NEGATIVE); OCCULT BLOOD,URINE NEGATIVE (NEGATIVE); PH,URINE 6.5 (5.0-8.0); PROTEIN,URINE NEGATIVE (NEGATIVE); SPECIFIC GRAVITIY, URINE 1.003 (1.003-1.030); UROBILINOGEN,URINE <=1.0 mg/dL (<=1.0)
[2023-12-13 09:08] LABS: ALCOHOL, URINE DRUG SCREEN NEGATIVE (NEGATIVE); AMPHET/METH SCREEN,URINE NEGATIVE (NEGATIVE); BARBITURATE SCREEN, URINE NEGATIVE (NEGATIVE); BENZODIAZEPINES SCREEN,URINE NEGATIVE (NEGATIVE); CANNABINOID SCREEN,URINE NEGATIVE (NEGATIVE); COCAINE SCREEN,URINE NEGATIVE (NEGATIVE); METHADONE SCREEN, URINE NEGATIVE (NEGATIVE); OPIATE SCREEN,URINE NEGATIVE (NEGATIVE); PHENCYCLIDINE SCREEN,URINE NEGATIVE (NEGATIVE)
[2023-12-13 09:16] LABS: PH,URINE DRUG SCREEN 6.5 (5.0-8.0)
[2023-12-13 17:59] VITALS: BP 110/63
[2023-12-13 23:09] VITALS: BP 116/70; PULSE 78; RESP 18; TEMP 97.4; O2SAT 98
[2023-12-13] MEDS: ZOLPIDEM TARTRATE 10 MG TABLET PO PRN (23:57)
[2023-12-14 09:20] VITALS: BP 119/70; PULSE 88; RESP 18; TEMP 97.7; O2SAT 96
[2023-12-14 20:18] VITALS: BP 106/60; PULSE 79; RESP 18; TEMP 98.5; O2SAT 96
[2023-12-15 08:40] VITALS: BP 121/74; PULSE 82; RESP 18; TEMP 97.9; O2SAT 96
[2023-12-15 21:29] VITALS: RESP 18
[2023-12-16 08:10] VITALS: BP 121/82; PULSE 83; RESP 18; TEMP 97.1; O2SAT 97
[2023-12-16 20:17] VITALS: BP 120/69; PULSE 76; RESP 18; TEMP 97.2; O2SAT 96
[2023-12-17 00:18] VITALS: BP 103/66; PULSE 96; RESP 18; TEMP 97.8; O2SAT 96
[2023-12-17 09:36] VITALS: BP 154/89; PULSE 100; RESP 18; TEMP 97.9; O2SAT 94
[2023-12-17 21:25] VITALS: BP 144/79; PULSE 86; RESP 16; TEMP 97.6; O2SAT 100
[2023-12-18 08:19] VITALS: BP 111/74; PULSE 87; RESP 17; TEMP 97.4; O2SAT 97
[2023-12-18] MEDS ORDERED: LORazepam 1 MG TABLET PO PRN (10:00)
[2023-12-18 21:10] VITALS: BP 116/67; PULSE 75; RESP 17; TEMP 97.7; O2SAT 97
[2023-12-19 10:46] VITALS: BP 118/63; PULSE 80; RESP 16; TEMP 98; O2SAT 99
[2023-12-19] MEDS ORDERED: TraZODone HCL 50 MG TABLET PO PRN (19:15)
[2023-12-19] MEDS ORDERED: HydrOXYzine PAMOATE 25 MG CAPSULE PO PRN (19:15)
[2023-12-19 20:11] LABS: GLUCOMETER DEV NAME(LOC) POC.BV; POC SARS-COV2 AG, FIA NEGATIVE (NEGATIVE)
[2023-12-19 23:30] VITALS: RESP 18
[2023-12-20 08:14] VITALS: BP 120/70; PULSE 100; RESP 17; TEMP 98; O2SAT 99
[2023-12-20] MEDS ORDERED: QUET200T PO (09:06)
[2023-12-20] MEDS: VENLAFAXINE HCL 75 MG TABLET PO SCH (09:43)
[2023-12-20] MEDS ORDERED: DIVA-112 PO (11:53)
[2023-12-20] MEDS ORDERED: VENL-193 PO (11:53)
[2023-12-20] MEDS ORDERED: TRAZ-252 PO (11:53)
[2023-12-20] MEDS ORDERED: QUET200T30 PO (11:53)
== END 2023-12-20 11:41 | disposition home or self-care (01) | DRG 750 ==
LOC: B3A 02:33 → B2S 12-11 16:05
PROVIDERS: ADMIT Psychiatry & Neurology Child & Adolescent Psychiatry; ATTEND Psychiatry & Neurology Child & Adolescent Psychiatry
PROC: GZHZZZZ Group Psychotherapy (ICD-10-PCS; principal; 2023-12-12)
DX: F20.0 Paranoid schizophrenia (principal); G40.909 Epilepsy, unspecified, not intractable, without status epilepticus; F41.9 Anxiety disorder, unspecified; M19.90 Unspecified osteoarthritis, unspecified site; G89.29 Other chronic pain; Z20.822 Contact with and (suspected) exposure to COVID-19; I10 Essential (primary) hypertension; M54.9 Dorsalgia, unspecified; K58.9 Irritable bowel syndrome, unspecified; Z88.8 Allergy status to other drugs, medicaments and biological substances; Z79.899 Other long term (current) drug therapy
CPT/HCPCS: 71045; 80061; 80164; 80307; 81003; 83036; 84443; 90686; 36415-L1; 36415-TC; G0008

== ENCOUNTER 2024-02-25 23:47 | Inpatient (IN) | payer MEDICAID ==
[~2024-02-25] VITALS: Ht 175.3 cm; Wt 94.6 kg
[~2024-02-25 23:47] MED LIST changes: -BENZ2TAB71 PO; +QUET200T PO; +QUET200T30 PO; -RISP4TAB73 PO; +TRAZ-252 PO
[2024-02-26] MEDS ORDERED: ZOLPIDEM TARTRATE 10 MG TABLET PO PRN (00:15)
[2024-02-26 01:24] VITALS: BP 155/93; PULSE 114; RESP 18; TEMP 98.2; O2SAT 98
[2024-02-26] MEDS ORDERED: MAGNESIUM HYDROXIDE SUSPENSION 30 ML UDCUP PO PRN (05:45)
[2024-02-26] MEDS ORDERED: IBUPROFEN 600 MG TABLET PO PRN (05:45)
[2024-02-26] MEDS ORDERED: CloNIDine HCL 0.1 MG TABLET PO PRN (05:45)
[2024-02-26] MEDS ORDERED: LOPERAMIDE HCL 2 MG CAPSULE PO PRN (05:45)
[2024-02-26] MEDS ORDERED: ALBUTEROL SULFATE HFA 90 MCG/PUFF 8 GM INHALER IH PRN (05:45)
[2024-02-26] MEDS ORDERED: ONDANSETRON HCL 4 MG TABLET PO PRN (05:45)
[2024-02-26] MEDS ORDERED: PETROLATUM,WHITE 28 GM JELLY TP PRN (05:45)
[2024-02-26] MEDS ORDERED: MAG HYDROX/ALUMINUM HYD/SIMETH ES 30 ML SUSPENSION UDCUP PO PRN (05:45)
[2024-02-26] MEDS ORDERED: BENZOCAINE/MENTHOL LOZENGE PO PRN (05:45)
[2024-02-26] MEDS ORDERED: BACITRACIN 28 GM OINTMENT TP PRN (05:45)
[2024-02-26] MEDS ORDERED: OMEPRAZOLE 20 MG CAPSULE PO PRN (05:45)
[2024-02-26] MEDS ORDERED: ACETAMINOPHEN 325 MG TABLET PO PRN (05:45)
[2024-02-26] MEDS ORDERED: DOCUSATE SODIUM 100 MG CAPSULE PO PRN (05:45)
[2024-02-26 08:29] VITALS: BP 136/82; PULSE 97; RESP 19; TEMP 97.6; O2SAT 97
[2024-02-26 20:34] VITALS: BP 141/89; PULSE 100; RESP 18; TEMP 98.4; O2SAT 96
[2024-02-26] MEDS: QUEtiapine FUMARATE 300 MG TABLET PO SCH (20:42)
[2024-02-27 02:07] LABS: HEPATITIS C AB (EIA) Non Reactive (Non Reactive)
[2024-02-27] MEDS: LORazepam 2 MG TABLET PO PRN (08:52)
[2024-02-27] MEDS: QUEtiapine FUMARATE 100 MG TABLET PO PRN (08:52)
[2024-02-27] MEDS: DIVALPROEX SODIUM 500 MG DR TABLET PO SCH (08:52)
[2024-02-27 09:41] LABS: APPEARANCE,URINE TURBID (CLEAR); BILIRUBIN,URINE NEGATIVE (NEGATIVE); COLOR,URINE LIGHT ORANGE (YELLOW); GLUCOSE, URINE (UA) NEGATIVE (NEGATIVE); KETONES,URINE TRACE mg/dL (NEGATIVE); LEUKOCYTE ESTERASE ,URINE NEGATIVE (NEGATIVE); NITRATE,URINE NEGATIVE (NEGATIVE); OCCULT BLOOD,URINE NEGATIVE (NEGATIVE); PROTEIN,URINE NEGATIVE (NEGATIVE); SPECIFIC GRAVITIY, URINE 1.013 (1.003-1.030); UROBILINOGEN,URINE <=1.0 mg/dL (<=1.0)
[2024-02-27 09:48] LABS: ALCOHOL, URINE DRUG SCREEN NEGATIVE (NEGATIVE); AMPHET/METH SCREEN,URINE POSITIVE (NEGATIVE); BARBITURATE SCREEN, URINE NEGATIVE (NEGATIVE); BENZODIAZEPINES SCREEN,URINE NEGATIVE (NEGATIVE); CANNABINOID SCREEN,URINE NEGATIVE (NEGATIVE); COCAINE SCREEN,URINE NEGATIVE (NEGATIVE); METHADONE SCREEN, URINE NEGATIVE (NEGATIVE); OPIATE SCREEN,URINE NEGATIVE (NEGATIVE); PHENCYCLIDINE SCREEN,URINE NEGATIVE (NEGATIVE)
[2024-02-27 15:05] VITALS: BP 130/72; PULSE 97; RESP 19; TEMP 96.8; O2SAT 98
[2024-02-27] MEDS: QUEtiapine FUMARATE 200 MG TABLET PO SCH (21:18)
[2024-02-27] MEDS: NICOTINE 21 MG/24 HOUR PATCH TD PRN (21:21)
[2024-02-27 21:57] VITALS: BP 155/86; PULSE 100; RESP 19; TEMP 97; O2SAT 99
[2024-02-28 14:43] VITALS: BP 123/66; PULSE 85; RESP 18; TEMP 97.9; O2SAT 99
[2024-02-28 21:28] VITALS: BP 144/80; PULSE 79; RESP 18; TEMP 97.3; O2SAT 100
[2024-02-29 03:45] VITALS: BP 112/78; PULSE 91; RESP 17; TEMP 97.5; O2SAT 96
[2024-02-29 09:00] VITALS: BP 103/60; PULSE 80; RESP 17; TEMP 97.8; O2SAT 100
== END 2024-02-29 14:45 | disposition home or self-care (01) | DRG 750 ==
LOC: B2S 02-26 00:06
PROVIDERS: ADMIT Psychiatry & Neurology Psychiatry; ATTEND Psychiatry & Neurology Psychiatry
DX: F20.0 Paranoid schizophrenia (principal); F15.10 Other stimulant abuse, uncomplicated; K59.00 Constipation, unspecified; F17.200 Nicotine dependence, unspecified, uncomplicated; G47.00 Insomnia, unspecified; M54.50 Low back pain, unspecified
CPT/HCPCS: 80307; 81003; 86803; 87340

== ENCOUNTER 2024-04-23 06:23 | Inpatient (IN) | payer MEDICAID ==
[~2024-04-23] VITALS: Ht 175.3 cm; Wt 100.2 kg
[~2024-04-23 06:23] MED LIST changes: -QUET200T PO; -TRAZ-252 PO; -VENL-193 PO
[2024-04-23 06:57] VITALS: BP 124/86; PULSE 92; RESP 18; TEMP 97.8; O2SAT 97
[2024-04-23] MEDS ORDERED: ZOLPIDEM TARTRATE 10 MG TABLET PO PRN (07:00)
[2024-04-23 07:30] LABS: GLUCOMETER DEV NAME(LOC) POC.BV; POC SARS-COV2 AG, FIA NEGATIVE (NEGATIVE)
[2024-04-23 08:12] VITALS: BP 118/72; PULSE 90; RESP 18; TEMP 97; O2SAT 97
[2024-04-23] MEDS: LORazepam 2 MG TABLET PO PRN (09:19)
[2024-04-23 20:20] VITALS: BP 120/69; PULSE 81; RESP 17; TEMP 97; O2SAT 99
[2024-04-23] MEDS ORDERED: BACITRACIN 28 GM OINTMENT TP PRN (22:45)
[2024-04-23] MEDS ORDERED: CloNIDine HCL 0.1 MG TABLET PO PRN (22:45)
[2024-04-23] MEDS ORDERED: MAGNESIUM HYDROXIDE SUSPENSION 30 ML UDCUP PO PRN (22:45)
[2024-04-23] MEDS ORDERED: PETROLATUM,WHITE 28 GM JELLY TP PRN (22:45)
[2024-04-23] MEDS ORDERED: BENZOCAINE/MENTHOL LOZENGE PO PRN (22:45)
[2024-04-23] MEDS ORDERED: LOPERAMIDE HCL 2 MG CAPSULE PO PRN (22:45)
[2024-04-23] MEDS ORDERED: ONDANSETRON HCL 4 MG TABLET PO PRN (22:45)
[2024-04-23] MEDS ORDERED: DOCUSATE SODIUM 100 MG CAPSULE PO PRN (22:45)
[2024-04-23] MEDS ORDERED: OMEPRAZOLE 20 MG CAPSULE PO PRN (22:45)
[2024-04-23] MEDS ORDERED: ALBUTEROL SULFATE HFA 90 MCG/PUFF 8 GM INHALER IH PRN (22:45)
[2024-04-23] MEDS ORDERED: IBUPROFEN 600 MG TABLET PO PRN (22:45)
[2024-04-23] MEDS ORDERED: ACETAMINOPHEN 325 MG TABLET PO PRN (22:45)
[2024-04-23] MEDS ORDERED: MAG HYDROX/ALUMINUM HYD/SIMETH ES 30 ML SUSPENSION UDCUP PO PRN (22:45)
[2024-04-24 08:31] VITALS: BP_SYST 110; BP_SYST 121; BP_DIAS 60; BP_DIAS 75; PULSE 70; RESP 17; TEMP 97.9; O2SAT 100
[2024-04-24] MEDS: NICOTINE 21 MG/24 HOUR PATCH TD SCH (12:45)
[2024-04-24] MEDS: DIVALPROEX SODIUM 500 MG DR TABLET PO SCH (18:09)
[2024-04-24] MEDS: QUEtiapine FUMARATE 200 MG TABLET PO SCH (18:09)
[2024-04-24 21:59] VITALS: BP 106/74; PULSE 70; RESP 17; TEMP 97.3; O2SAT 98
[2024-04-25 07:45] LABS: BASOPHILS % (AUTO) 0.3 % (0.0-2.0); EOSINOPHILS % (AUTO) 5.5 % (1.0-6.0); HEMATOCRIT 43.7 % (41-53); HEMOGLOBIN 14.7 g/dL (13.5-17.5); LYMPHOCYTES # (AUTO) 2.4 K/uL (1.0-4.8); MEAN CORPUSCULAR HEMOGLOBIN 30.5 pg (26.0-34.0); MEAN CORPUSCULAR HGB CONC 33.6 G/dL (31.0-37.0); MEAN CORPUSCULAR VOLUME 91 fL (80-100); MONOCYTES # (AUTO) 0.9 K/uL (0.1-1.0); MONOCYTES % (AUTO) 11.4 % (2.0-9.0); NEUTROPHILS % (AUTO) 51.8 % (40.0-70.0); PLATELET COUNT (AUTO) 208 K/uL (150-450); RED BLOOD CELL COUNT(AUTO) 4.82 MIL/uL (4.50-5.90); RED CELL DISTRIBUTION WIDTH 13.4 % (11.5-14.5); WHITE BLOOD COUNT (AUTO) 7.8 K/uL (4.5-11.0)
[2024-04-25 08:06] LABS: ALANINE AMINOTRANSFERASE 30 U/L (12-78); ALBUMIN 3.4 g/dL (3.4-5.0); ALKALINE PHOSPHATASE 42 U/L (46-116); ANION GAP 7 mmol/L (8-16); ASPARTATE AMINOTRANSFERASE 15 U/L (15-37); BILIRUBIN,TOTAL 0.2 mg/dL (0.1-1.0); CALCIUM, TOTAL 8.6 mg/dL (8.8-10.5); CARBON DIOXIDE 30 mmol/L (22-29); CHLORIDE 104 mmol/L (98-107); CHOL/HDL RATIO 2.3 (4.2-7.3); CHOLESTEROL 133 mg/dL (131-200); CREATININE 0.75 mg/dL (0.60-1.30); FREE T4 (FREE THYROXINE) 0.87 ng/dL (0.76-1.46); GLOMERULAR FILTR. RATE CALC > 60 mL/min (>60); GLUCOSE,RANDOM 96 mg/dL (70-110); HDL CHOLESTEROL 58 mg/dL (40-60); LDL CHOL (CALC.) 55 mg/dL (0-130); SODIUM SERUM 141 mmol/L (136-145); T4 (THYROXINE) 7.7 mcg/dL (4.7-13.3); THYROID STIMULATING HORMONE 1.55 uIU/mL (0.36-3.74); TOTAL PROTEIN, SERUM 6.6 g/dL (6.4-8.2); TRIGLYCERIDES 98 mg/dL (15-150); UREA NITROGEN, BLOOD 9 mg/dL (7-18)
[2024-04-25 10:40] VITALS: BP 112/64; PULSE 67; RESP 18; TEMP 97.2; O2SAT 97
[2024-04-25 20:58] VITALS: BP 105/62; PULSE 84; TEMP 97.4; O2SAT 97
[2024-04-26 10:20] VITALS: BP 126/66; PULSE 78; RESP 18; TEMP 97.2; O2SAT 98
== END 2024-04-26 19:17 | disposition home or self-care (01) | DRG 750 ==
LOC: B2S 06:54
PROVIDERS: ADMIT Psychiatry & Neurology Psychiatry; ATTEND Psychiatry & Neurology Psychiatry
DX: F25.9 Schizoaffective disorder, unspecified (principal); R45.851 Suicidal ideations; G47.00 Insomnia, unspecified; F17.200 Nicotine dependence, unspecified, uncomplicated; M54.50 Low back pain, unspecified; K59.00 Constipation, unspecified; Z20.822 Contact with and (suspected) exposure to COVID-19; F19.10 Other psychoactive substance abuse, uncomplicated; Z88.8 Allergy status to other drugs, medicaments and biological substances
CPT/HCPCS: 80053; 80061; 84436; 84439; 84443; 85025; 86592